=== PATIENT | male | born 1945 | race Caucasian/White ===

== ENCOUNTER → 2016-07-23 | Outpatient (CLI) | payer OTHER, MEDICARE ==
[~2016-07-23] MED LIST: BACT800T5 PO; BREO1INH INH; BUPR75TA5 PO; CIPR500T89 PO; METO25TA74 PO; OMEP40CA2 PO; PERC5TAB6 PO; PERCOCET PO; POLYOPD OU; PRAD75CA3 PO; RAMI25CA PO; SING10TA32 PO; VANC1INJ IV; ZOLO100T PO
== END ==
LOC: M LAB 18:35
PROVIDERS: ATTEND Urology
DX: N39.3 Stress incontinence (female) (male) (principal)

== ENCOUNTER 2016-07-24 05:52 | Day surgery (SDC) | payer OTHER, MEDICARE ==
[~2016-07-24] VITALS: Ht 182.9 cm; Wt 88.5 kg
[2016-07-24] VITALS (7 sets, daily range): BP systolic 97–151; BP diastolic 62–84
[~2016-07-24 05:52] MED LIST changes: -METO25TA74 PO; -RAMI25CA PO; -SING10TA32 PO
[2016-07-24] MEDS ORDERED: MIDAZOLAM INJ 2 MG/2 ML VIAL (J2250) As Ordered ONE (06:49)
[2016-07-24] MEDS ORDERED: LIDOCAINE 2% INJ 100 MG/5 ML SDV (FOR ANES.) As Ordered ONE (06:50)
[2016-07-24] MEDS ORDERED: fentaNYL 100 MCG/2 ML INJECTION (J3010) As Ordered ONE ×2 (06:50→08:33)
[2016-07-24] MEDS ORDERED: PROPOFOL 200 MG/20 ML VIAL As Ordered ONE (06:50)
[2016-07-24] MEDS ORDERED: VANCOMYCIN 1000 MG/20 ML VIAL (J3370) As Ordered ONE (06:56)
[2016-07-24] MEDS ORDERED: BACTRIM IV 160MG-800MG/10ML VIAL (S0039) XX SCH (07:00)
[2016-07-24] MEDS ORDERED: LR 1,000 ML IV ONE (07:00)
[2016-07-24] MEDS ORDERED: VANCOMYCIN HCL 1,000 MG, VIAL MATE ADAPTER 1 EACH in D5W 250 ML IV ONE (07:15)
[2016-07-24] MEDS ORDERED: GENTAMICIN 100 MG in APPROPRIATE DILUENT 1 EA IV ONE (07:15)
[2016-07-24] MEDS ORDERED: BACITRACIN OINT 30GM As Ordered ONE (07:17)
[2016-07-24] MEDS ORDERED: METO25TA74 PO (07:33)
[2016-07-24] MEDS ORDERED: RAMI25CA PO (07:33)
[2016-07-24] MEDS ORDERED: SING10TA32 PO (07:33)
[2016-07-24] MEDS ORDERED: ePHEDrine SULFATE 25 MG/5 ML(5MG/ML) SYRINGE As Ordered ONE (07:59)
[2016-07-24] MEDS ORDERED: PHENYLephrine HCL 500 MCG/5 ML (100MCG/ML) SYRINGE (J2370) As Ordered ONE (08:01)
[2016-07-24] MEDS ORDERED: BACTRIM IV 160MG-800MG/10ML VIAL (S0039) XX ONE (09:30)
[2016-07-24] MEDS ORDERED: ONDANSETRON 4MG/2ML VIAL (J2405) As Ordered ONE (10:56)
[2016-07-24] MEDS: KETOROLAC 30 MG/ML VIAL (J1885) IV SCH ×2 (11:00→19:39)
[2016-07-24] MEDS ORDERED: KETOROLAC 30 MG/ML VIAL (J1885) As Ordered ONE (11:03)
[2016-07-24] MEDS ORDERED: ONDANSETRON 4MG/2ML VIAL (J2405) IV PRN (11:15)
[2016-07-24] MEDS ORDERED: LR 1,000 ML IV SCH (11:15)
[2016-07-24] MEDS: fentaNYL 100 MCG/2 ML INJECTION (J3010) IV PRN ×2 (11:35→11:40)
[2016-07-24] MEDS: PERCOCET 5MG/325MG TAB PO PRN ×2 (11:52→17:59)
[2016-07-24] MEDS: BACTRIM 160MG/800MG DS TAB PO SCH ×2 (14:20→21:15)
[2016-07-24] MEDS ORDERED: ACETAMINOPHEN 500 MG TAB PO PRN (16:30)
[2016-07-24] MEDS ORDERED: LIDOCAINE 2% 5ML JELLY UROJET TOP ONE (17:00)
[2016-07-24] MEDS: METOPROLOL TART 25 MG TABLET PO SCH (21:17)
[2016-07-25 02:00] VITALS: BP 107/73
[2016-07-25] MEDS: KETOROLAC 30 MG/ML VIAL (J1885) IV SCH ×2 (02:24→11:00)
[2016-07-25 06:00] VITALS: BP 133/79
[2016-07-25] MEDS: PERCOCET 5MG/325MG TAB PO PRN ×2 (06:35→15:13)
[2016-07-25 09:00] VITALS: BP 133/79
[2016-07-25] MEDS: METOPROLOL TART 25 MG TABLET PO SCH (09:00)
[2016-07-25] MEDS ORDERED: PANTOPRAZOLE 40MG INJ (PROTONIX) (C9113) IV SCH (09:00)
[2016-07-25] MEDS: BACTRIM 160MG/800MG DS TAB PO SCH (09:00)
[2016-07-25 10:15] VITALS: O2SAT 94
[2016-07-25] MEDS ORDERED: PERCOCET PO (12:35)
[2016-07-25] MEDS ORDERED: BACT800T5 PO (12:35)
[2016-07-25 13:35] VITALS: BP 125/81
--- NOTE | 2016-07-25 16:40 | DSES ---
DATE OF ADMISSION: 07/24/2016 DATE OF DISCHARGE: 07/25/2016 ADMISSION DIAGNOSIS: Erectile dysfunction. DISCHARGE DIAGNOSIS: Erectile dysfunction. SURGERY PERFORMED: Placement of inflatable penile prosthesis Coloplast Titan 18 cm plus 1 cm rear tip. ADMITTING SURGEON: Hector Russell MD DISCHARGE SURGEON: Hector Russell MD SURGERY PERFORMED BY: Hector Russell MD COMPLICATIONS: None. HISTORY OF PRESENT ILLNESS: This is a 70-year-old male patient that has a history of having erectile dysfunction. He has tried TriMix without any success and also PDE5 inhibitors without any success. For this reason, he had placement of a penile prosthesis implant performed on 07/24/2016, without complications. HOSPITALIZATION COURSE: The patient had placement of a penile implant prosthesis, Titan 18 cm plus 1 cm rear tip. The patient was hospitalized after the procedure. He could not void after 6 hours. For this reason, we had to place a catheter, 16-Anguillan, to gravity, inflated the balloon to 10 mL. On postoperative day #1, he was tolerating a regular diet, ambulating very well, pain was controlled with oral pain medication, pain was 5/10. On the morning of postoperative day #1, we discontinued the Mayfield catheter and activated the sphincter. He has an artificial urinary sphincter that was placed 6 months ago and he actually managed this sphincter very well. We will observe him and he will be going home after voiding. He will go home with the following indications: Bactrim Double Strength one tablet by mouth twice a day for 3 weeks and he will have Percocet 5/325 mg one tablet by mouth every 6 hours as needed for pain. He cannot carry heavy weightlifting above 20 pounds. He can shower in 3 days. No sit bath, no pool, no pond. No motorcycle, no bicycle, and no horse riding. He understands very well these indications. He will followup in 2 weeks at [facility].
--- NOTE | 2016-07-26 05:58 | RO ---
DATE OF PROCEDURE: 07/24/2016 PREOPERATIVE DIAGNOSIS: Erectile dysfunction. POSTOPERATIVE DIAGNOSIS: Erectile dysfunction. PROCEDURE: Inflatable penile prosthesis implant placement 8 cm plus 1 cm rear tips bilaterally. SURGEON: Dr. Hector Russell CAREERS COUNSELLOR: None. ANESTHESIA: General. COMPLICATIONS: None. ESTIMATED BLOOD LOSS: N/A. HISTORY OF PRESENT ILLNESS: This is a 70-year-old male patient with a history of erectile dysfunction, has failed medical therapy with Viagra and Cialis, has failed injectable therapy with TriMix. For this reason, he has consented for inflatable penile prosthesis implant placement, Coloplast Titan. PROCEDURE DESCRIPTION: In a patient in supine position under general anesthesia, after prepping and draping the area of concern, which included the entire genitalia, we actually deactivated the artificial urinary sphincter and placed a #16-Welsh Mayfield catheter into the bladder to drain the bladder and inflated the balloon to 10 mL. We then proceeded to actually let the sphincter be deactivated. Meanwhile, we began the procedure. We then proceeded to do an incision in the mid raphe at the level at the base of the penis, into the penoscrotal area, for about 5 cm in length. Through this skin incision, we incised the corpora cavernotomy on the right side and on the left side for about 2 cm in length. We dilated the corpora cavernotomies on both sides and the corpora cavernosa and then measured with a Libby the corpora cavernosa for a total of 19 cm on both sides. For this reason, we selected a penile implant 18 cm in length with 1 cm rear tips. At that moment in time, we irrigated with Bactrim solution and we dissected on the left side of the external inguinal canal, inside the external inguinal canal, and into the inguinal canal and made a puncture in the posterior wall in the floor of the inguinal canal and entered the Retzius space. Through this space dissection, we actually placed a [place] reservoir and inflated the reservoir for 70 mL. We rubber-shod the tubing of the reservoir. At that moment in time, with the help of the Libby, we passed strings attached to the inflatable penile prostheses and passed it inside the corpora on each side, extruding the needles through the glans. We then placed two tags, took the needles out, and pulled penile implant distally. Proximally, we placed the penile implant with 1 cm rear tip on each side and placed it inside for corpora cavernosa bilaterally. We then proceeded to close the corpora cavernotomies with #2-0 Vicryl in separate stitches times three on both sides until watertight. We then proceeded to connect the tubings of the penile implant with the tubing of the reservoir and inflated the penile implant to about 20 mL to actually have a semi-rigid erection at that moment in time. We then proceeded to actually place the pump inside the scrotal sac by making a scrotal sac pouch and then closed the scrotal sac in two layers with #3-0 chromic. Closed the skin with #3-0 Monocryl in a running fashion. We placed bacitracin cream, 4 x 4's, and a mummy wrap with a Kerlix roll around the penis and the testicles. We then proceeded to actually deflate the balloon of the Mayfield catheter, took the Mayfield catheter out, and activated the artificial urinary sphincter. PLAN: The patient will pass to recovery, then to the floor. Once he is taking oral pain medication, tolerating regular diet, and ambulating very well, he will be discharged home. There were no complications during surgery. He will not activate the penile implant for 8 weeks. He has to take Bactrim one tablet by mouth twice a day for 4 weeks.
== END 2016-07-25 15:15 | disposition home or self-care (01) ==
LOC: M SDC 05:52 → M MS5PR 12:30 → M SDC 07-25 15:15
PROVIDERS: ATTEND Urology
DX: N52.9 Male erectile dysfunction, unspecified (principal); M19.90 Unspecified osteoarthritis, unspecified site; I25.10 Atherosclerotic heart disease of native coronary artery without angina pectoris; E78.5 Hyperlipidemia, unspecified; R07.9 Chest pain, unspecified; I71.2 Thoracic aortic aneurysm, without rupture; I10 Essential (primary) hypertension; R94.31 Abnormal electrocardiogram [ECG] [EKG]; F41.8 Other specified anxiety disorders; I48.92 Unspecified atrial flutter; K21.9 Gastro-esophageal reflux disease without esophagitis; M54.2 Cervicalgia; M54.5 Low back pain; G89.29 Other chronic pain; F32.9 Major depressive disorder, single episode, unspecified; F43.10 Post-traumatic stress disorder, unspecified; R05 Cough; R06.02 Shortness of breath; J30.9 Allergic rhinitis, unspecified; R06.83 Snoring; G47.9 Sleep disorder, unspecified; C61 Malignant neoplasm of prostate; R32 Unspecified urinary incontinence; Z88.6 Allergy status to analgesic agent; Z79.899 Other long term (current) drug therapy; Z87.891 Personal history of nicotine dependence
CPT/HCPCS: 36415; 54401; 86850; 86900; 86901; 96374; 96375; C1813; C9113; J1580; J1885; J2250; J2370; J2405; J3010; J3370

== ENCOUNTER → 2016-08-02 | Outpatient (CLI) | payer OTHER ==
[~2016-08-02] MED LIST changes: +METO25TA74 PO; +RAMI25CA PO; +SING10TA32 PO
== END ==
LOC: M SMT 10:35
PROVIDERS: ATTEND Urology
DX: N52.9 Male erectile dysfunction, unspecified (principal)

== ENCOUNTER → 2017-02-03 | Outpatient (CLI) | payer OTHER ==
[~2017-02-03] MED LIST changes: +CIPR-249 PO; -CIPR500T89 PO; +METO1TAB32 PO; -METO25TA74 PO; +PERC5TAB12 PO; -PERC5TAB6 PO
== END ==
LOC: M SMT 12:58
PROVIDERS: ATTEND Urology
DX: C61 Malignant neoplasm of prostate (principal)

== ENCOUNTER → 2017-08-04 | Outpatient (CLI) | payer OTHER ==
[2017-08-04 19:48] LABS: PROSTATIC SPECIFIC AG MONITOR < 0.01 NG/ML (< 4.0)
== END ==
LOC: M SMT 13:43
DX: C61 Malignant neoplasm of prostate (principal)
CPT/HCPCS: 84153

== ENCOUNTER → 2018-02-06 | Outpatient (CLI) | payer OTHER ==
[2018-02-06 18:12] LABS: PROSTATIC SPECIFIC AG MONITOR < 0.0 NG/ML (< 4.0)
== END ==
LOC: M SMT 13:16
DX: C61 Malignant neoplasm of prostate (principal)
CPT/HCPCS: 84153

== ENCOUNTER → 2019-08-09 | Outpatient (CLI) | payer OTHER ==
[~2019-08-09] MED LIST changes: +BUPR-335 PO; +ELIQ5TAB PO; +METO25TA4 PO; +MULTCAP PO; -OMEP40CA2 PO; +OMEP40CA97 PO; -PRAD75CA3 PO; +PRAD75CA5 PO; +RAMI1CAP22 PO; -RAMI25CA PO; +VERA24TASA PO
== END ==
LOC: M LABSMTC 12:46
PROVIDERS: ATTEND Anesthesiology
DX: Z01.818 Encounter for other preprocedural examination (principal); Z11.59 Encounter for screening for other viral diseases
CPT/HCPCS: C9803; U0003

== ENCOUNTER 2019-08-12 08:24 | Day surgery (SDC) | payer OTHER ==
[~2019-08-12] VITALS: Ht 182.9 cm; Wt 88.9 kg
[2019-08-12] MEDS: NS 1,000 ML IV ONE (08:52)
[2019-08-12] MEDS ORDERED: propofoL 200 MG/20 ML VIAL As Ordered ONE ×2 (09:50→09:51)
[2019-08-12] MEDS ORDERED: LIDOCAINE 2% 100MG/5ML SDV (FOR ANES.) As Ordered ONE (09:51)
[2019-08-12] MEDS ORDERED: ESMOLOL INJ 100MG/10ML VIAL As Ordered ONE (10:00)
--- NOTE | 2019-08-12 10:04 | ROOR ---
Patient Name: Dave Colunga Procedure Date: 08/12/2019 9:31 AM Date of : 1945 Age: 73 Room: [facility] Gender: Male Note Status: Finalized Procedure: Colonoscopy Indications: High risk colon cancer surveillance: Personal history of colonic polyps Providers: Julian Cobian Jr, MD Referring MD: MELANY RENE Requesting Provider: Medicines: Propofol per Anesthesia Complications: No immediate complications. Procedure: Pre-Anesthesia Assessment: - Prior to the procedure, a History and Physical was performed, and patient medications and allergies were reviewed. The patient is competent. The risks and benefits of the procedure and the sedation options and risks were discussed with the patient. All questions were answered and informed consent was obtained. Patient identification and proposed procedure were verified by the physician and the nurse in the pre-procedure area and in the procedure room. Mental Status Examination: alert and oriented. Airway Examination: normal oropharyngeal airway and neck mobility. Respiratory Examination: clear to auscultation. CV Examination: normal. ASA Grade Assessment: II - A patient with mild systemic disease. After reviewing the risks and benefits, the patient was deemed in satisfactory condition to undergo the procedure. The anesthesia plan was to use moderate sedation / analgesia (conscious sedation). Immediately prior to administration of medications, the patient was re-assessed for adequacy to receive sedatives. The heart rate, respiratory rate, oxygen saturations, blood pressure, adequacy of pulmonary ventilation, and response to care were monitored throughout the procedure. The physical status of the patient was re-assessed after the procedure. The Colonoscope was introduced through the anus and advanced to the cecum, identified by appendiceal orifice and ileocecal valve. The colonoscopy was performed without difficulty. The patient tolerated the procedure well. The quality of the bowel preparation was adequate. Findings: The rectum, descending colon, transverse colon, cecum, appendiceal orifice and ileocecal valve appeared normal. Three polyps were found in the recto-sigmoid colon and ascending colon. The polyps were small in size. These polyps were removed with a hot snare. Resection was complete, but the polyp tissue was only partially retrieved. Multiple small and large-mouthed diverticula were found in the sigmoid colon. Non-bleeding external and internal hemorrhoids were found during endoscopy. The hemorrhoids were Grade III (internal hemorrhoids that prolapse but require manual reduction). Impression: - The rectum, descending colon, transverse colon, cecum, appendiceal orifice and ileocecal valve are normal. - Three small polyps at the recto-sigmoid colon and in the ascending colon, removed with a hot snare. Complete resection. Partial retrieval. - Diverticulosis in the sigmoid colon. - Non-bleeding external and internal hemorrhoids. Recommendation: - Repeat colonoscopy in 3 - 5 years for surveillance based on pathology results. Julian Cobian MD Julian Cobian Jr, MD 08/12/2019 10:04:23 AM Electronically signed by Julian Cobian Jr, MD Number of Addenda: 0 Note Initiated On: 08/12/2019 9:31 AM Estimated Blood Loss: Estimated blood loss: none.
[2019-08-12 10:40] VITALS: BP 114/83
== END 2019-08-12 10:45 | disposition home or self-care (01) ==
LOC: M OPP 08:24
PROVIDERS: ATTEND Surgery
DX: Z12.11 Encounter for screening for malignant neoplasm of colon (principal); Z86.010 Personal history of colon polyps; K64.2 Third degree hemorrhoids; D12.6 Benign neoplasm of colon, unspecified; K57.30 Diverticulosis of large intestine without perforation or abscess without bleeding; Z79.899 Other long term (current) drug therapy; Z88.8 Allergy status to other drugs, medicaments and biological substances; Z87.891 Personal history of nicotine dependence

== ENCOUNTER → 2020-02-04 | Outpatient (CLI) | payer SELFPAY | LOC: M LABSMTC 13:35 | PROVIDERS: ATTEND Pediatrics | DX: Z20.828 Contact with and (suspected) exposure to other viral communicable diseases (principal) ==

== ENCOUNTER 2020-11-25 19:24 | Emergency (ER) | payer OTHER, MEDICARE ==
[~2020-11-25] VITALS: Ht 182.9 cm; Wt 88.5 kg
[~2020-11-25 19:24] MED LIST changes: +OMEP40CA4 PO; -OMEP40CA97 PO
[2020-11-25] MEDS ORDERED: ROSU40TA4 PO (19:42)
[2020-11-25] MEDS ORDERED: METO1TAB7 PO (19:42)
[2020-11-25] MEDS ORDERED: LIDOCAINE W/EPINEPHRINE 1% 20ML VIAL SC ONE (20:15)
[2020-11-25] MEDS ORDERED: BOOSTRIX/ADACEL VACCINE (DIPHTH/PERTUSS/ACELL/TETANUS) 0.5ML SYR IM ONE (20:15)
--- NOTE | 2020-11-25 20:19 | REPVR ---
PROCEDURE INFORMATION: Exam: CT Head Without Contrast Exam date and time: 11/25/2020 7:50 PM Age: 75 years old Clinical indication: Injury or trauma; Fall; Blunt trauma (contusions or hematomas); Additional info: Eloquis/fall on pavement TECHNIQUE: Imaging protocol: Computed tomography of the head without contrast. Radiation optimization: All CT scans at this facility use at least one of these dose optimization techniques: automated exposure control; mA and/or kV adjustment per patient size (includes targeted exams where dose is matched to clinical indication); or iterative reconstruction. COMPARISON: No relevant prior studies available. FINDINGS: Brain: Decreased attenuation of the supratentorial white matter is likely secondary to chronic microvascular ischemia. No acute intracranial hemorrhage. 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 Cerebral ventricles: Ventricular and subarachnoid spaces are age appropriate. Paranasal sinuses: Visualized sinuses are unremarkable. No fluid levels. Mastoid air cells: Visualized mastoid air cells are well aerated. Vasculature: Intracranial vascular calcification. Bones/joints: Unremarkable. No acute fracture. Soft tissues: Unremarkable. IMPRESSION: No acute intracranial abnormality. Electronically signed by: Jose E Cuevas On 11/25/2020 20:19:17 PM
--- NOTE | 2020-11-25 20:22 | REPVR ---
PROCEDURE INFORMATION: Exam: CT Cervical Spine Without Contrast Exam date and time: 11/25/2020 7:50 PM Age: 75 years old Clinical indication: Injury or trauma; Fall; Blunt trauma; Additional info: Eloquis/fall on pavement TECHNIQUE: Imaging protocol: Computed tomography images of the cervical spine without contrast. Radiation optimization: All CT scans at this facility use at least one of these dose optimization techniques: automated exposure control; mA and/or kV adjustment per patient size (includes targeted exams where dose is matched to clinical indication); or iterative reconstruction. COMPARISON: No relevant prior studies available. FINDINGS: Bones/joints: Nonspecific straightening. Trace anterolisthesis of C3 on C4 and C7 on T1. Vertebral body heights are preserved. [id number] degenerative change about the dens. Moderate prevertebral osteophytosis. There are bilateral facet joint degenerative changes more prominent on the left. No acute cervical spine fracture. Discs/Spinal canal/Neural foramina: No definite significant central canal stenosis within limitations of technique. Multilevel cervical foraminal stenoses. Lungs: Scarring at the lung apices. Pleural spaces: No visible pneumothorax. Vasculature: Vascular calcification. Soft tissues: Unremarkable. IMPRESSION: No acute cervical spine fracture. Electronically signed by: Jose E Cuevas On 11/25/2020 20:21:56 PM
--- NOTE | 2020-11-25 21:23 | REPVR ---
PROCEDURE INFORMATION: Exam: CT Maxillofacial Without Contrast Exam date and time: 11/25/2020 9:03 PM Age: 75 years old Clinical indication: Injury or trauma; Fall; Blunt trauma (contusions or hematomas); Nose; Additional info: Fall, R/O nasal fracture TECHNIQUE: Imaging protocol: Computed tomography images of the face without contrast. Radiation optimization: All CT scans at this facility use at least one of these dose optimization techniques: automated exposure control; mA and/or kV adjustment per patient size (includes targeted exams where dose is matched to clinical indication); or iterative reconstruction. COMPARISON: CT Head without contrast 11/25/2020 7:46 PM FINDINGS: Limitations: Artifact arising from metallic dental hardware. Orbital cavity: No orbital hemorrhage. Bones/joints: There are degenerative changes involving the cervical spine. No acute facial bone fracture. Chronic appearing left nasal bone fracture. Paranasal sinuses: Minimal paranasal sinus disease. Soft tissues: Unremarkable. IMPRESSION: Mildly depressed left nasal bone fracture is favored to be chronic. Electronically signed by: Jose E Cuevas On 11/25/2020 21:23:31 PM
[2020-11-25 22:32] VITALS: BP 120/70
--- NOTE | 2020-11-26 15:56 | REP ---
INDICATION: fall, laceration. COMPARISON: None. TECHNIQUE: Four views the left hand were performed. FINDINGS: There is no evidence of fracture or dislocation. There is no significant arthropathy. There is a soft tissue calcification on the palm are aspect of the distal radius, may be an old avulsion fracture. IMPRESSION: 1. No evidence of fracture or significant arthropathy. 2. Probable old avulsion fracture of the distal radius. <Electronically signed by Alexy Nix > 11/26/20 [id number]
== END 2020-11-25 22:34 | disposition home or self-care (01) ==
LOC: M ED 19:24
DX: S61.422A Laceration with foreign body of left hand, initial encounter (principal); S00.81XA Abrasion of other part of head, initial encounter; X58.XXXA Exposure to other specified factors, initial encounter; Y92.099 Unspecified place in other non-institutional residence as the place of occurrence of the external cause; Y93.9 Activity, unspecified; Y99.9 Unspecified external cause status; I48.91 Unspecified atrial fibrillation; I10 Essential (primary) hypertension; K21.9 Gastro-esophageal reflux disease without esophagitis; F43.10 Post-traumatic stress disorder, unspecified; Z85.46 Personal history of malignant neoplasm of prostate; Z79.01 Long term (current) use of anticoagulants; Z79.899 Other long term (current) drug therapy; Z88.8 Allergy status to other drugs, medicaments and biological substances

== ENCOUNTER → 2023-08-25 | Outpatient (CLI) | payer OTHER, MEDICARE ==
[~2023-08-25] MED LIST changes: +ALLE180T33 PO; +METO1TAB7 PO; +MONT-5 PO; +PRES1CAP PO; -RAMI1CAP22 PO; +RAMI2.5C42 PO; +ROSU40TA63 PO; -SING10TA32 PO; +VERA240T65 PO; -VERA24TASA PO
[2023-08-25 16:30] LABS: APPEARANCE, URINE CLEAR (CLEAR); BACTERIA, URINE AUTO NEGATIVE (NEGATIVE); BILIRUBIN, URINE AUTO NEGATIVE (NEGATIVE); BLOOD, URINE BLOOD NEGATIVE (NEGATIVE); COLOR, URINE YELLOW (YELLOW); GLUCOSE, URINE (UA) AUTO NEGATIVE (NEGATIVE); KETONE, URINE AUTO NEGATIVE (NEGATIVE); LEUKOCYTE ESTERASE, URINE AUTO NEGATIVE (NEGATIVE); NITRITE, URINE AUTO NEGATIVE (NEGATIVE); PROTEIN, URINE AUTO NEGATIVE (NEGATIVE); RBC, URINE AUTO 0 /HPF (0-3); SPECIFIC GRAVITY URINE AUTO 1.016 (1.002-1.035); SQUAMOUS EPITHELIAL CELL UR AU 1 /HPF (0-6); WBC, URINE AUTO 0 /HPF (0-3)
[2023-08-25 16:52] LABS: PROSTATIC SPECIFIC AG MONITOR 0.04 NG/ML (< 4.00)
[2023-08-25 16:54] LABS: ALBUMIN 4.1 G/DL (3.2-5.2); ALKALINE PHOSPHATASE 76 U/L (46-116); ALT/SGPT 17 U/L (7.0-40); AST/SGOT 19 U/L (<34); BILIRUBIN,TOTAL 1.3 MG/DL (0.3-1.2); BLOOD UREA NITROGEN 13 MG/DL (9-23); CALCIUM LEVEL 9.5 MG/DL (8.3-10.6); CARBON DIOXIDE LEVEL 28 MMOL/L (20-31); CHLORIDE LEVEL 108 MMOL/L (98-107); CHOLESTEROL LEVEL 173 MG/DL (<200); CHOLESTEROL RISK RATIO 2.32 (<5); CREATININE FOR GFR 1.12 MG/DL (0.70-1.30); GLOMERULAR FILTRATION RATE > 60.0 (>42); GLUCOSE, FASTING 88 MG/DL (74-106); HDL CHOLESTEROL 74.5 MG/DL (> 40); HDL CHOLESTEROL 74.5 MG/DL (>40); LDL CHOLESTEROL 84.1 MG/DL (<100); NON-HDL-C 98.5 MG/DL; POTASSIUM SERUM 4.2 MMOL/L (3.5-5.1); SODIUM LEVEL 140 MMOL/L (136-145); TOTAL PROTEIN 7.1 G/DL (5.7-8.2); TRIGLYCERIDES LEVEL 72 MG/DL (<150)
[2023-08-25 16:56] LABS: THYROID STIMULATING HORMONE 2.622 uIU/ML (0.55-4.78)
== END ==
LOC: M WUC 14:13
PROVIDERS: ATTEND Physician Assistant
DX: I48.92 Unspecified atrial flutter (principal); E78.5 Hyperlipidemia, unspecified; C61 Malignant neoplasm of prostate; R35.1 Nocturia

== ENCOUNTER → 2023-10-08 | Outpatient (CLI) | payer OTHER, MEDICARE | LOC: M PLAIMG 11:57 | PROVIDERS: ATTEND Physician Assistant | DX: M17.0 Bilateral primary osteoarthritis of knee (principal) ==

== ENCOUNTER 2024-02-23 16:30 | Emergency (ER) | payer OTHER, MEDICARE ==
[~2024-02-23] VITALS: Ht 182.9 cm; Wt 80.9 kg
[~2024-02-23 16:30] MED LIST changes: -ROSU40TA63 PO; +ROSU40TA81 PO
[2024-02-23] MEDS ORDERED: XARE20TA PO (16:53)
[2024-02-23] MEDS ORDERED: VITA200012 PO (17:10)
[2024-02-23] MEDS: OXYMETAZOLINE 0.05% NASAL SPRAY (AFRIN) ONE (17:26)
[2024-02-23 17:39] LABS: HEMATOCRIT 40.9 % (42.0-52.0); HEMOGLOBIN 13.8 g/dl (13.5-17.5); MEAN CORPUSCULAR HGB CONC 33.7 g/dl (32.0-36.5); MEAN CORPUSCULAR VOLUME 97.8 fl (80.0-96.0); PLATELET COUNT, AUTOMATED 162 10^3/uL (150-450); RED BLOOD COUNT 4.18 10^6/uL (4.30-6.10); WHITE BLOOD COUNT 5.7 10^3/uL (4.0-10.0)
[2024-02-23 17:52] LABS: INR 1.84; PARTIAL THROMBOPLASTIN TIME 38.5 SECONDS (24.8-34.2); PROTHROMBIN TIME 21.4 SECONDS (12.5-14.5)
[2024-02-23 18:20] VITALS: BP 133/95; TEMP 98.7; O2SAT 96
== END 2024-02-23 18:26 | disposition home or self-care (01) ==
LOC: M ED 16:30
DX: R04.0 Epistaxis (principal); I10 Essential (primary) hypertension; I48.91 Unspecified atrial fibrillation; C61 Malignant neoplasm of prostate; K21.9 Gastro-esophageal reflux disease without esophagitis; Z88.6 Allergy status to analgesic agent

== ENCOUNTER 2024-04-12 08:22 | Day surgery (SDC) | payer OTHER, MEDICARE ==
[~2024-04-12] VITALS: Ht 185.4 cm; Wt 79.8 kg
[~2024-04-12 08:22] MED LIST changes: +LR 1,000 ML IV SCH; +METO1TAB87 PO; +MIDAZOLAM INJ 2MG/2ML VIAL As Ordered ONE; +VITA200012 PO; +WELL100T2 PO; +XARE20TA PO; +fentaNYL 100 MCG/2 ML INJECTION As Ordered ONE
[2024-04-12] MEDS: TETRACAINE 0.5% OPHTH SOLN 4ML OS SCH (09:18)
[2024-04-12] MEDS: CYCLOPENTOLATE 1% OPHTH SOLN 2ML BTL OS SCH (09:18)
[2024-04-12] MEDS: FLURBIPROFEN 0.03% OPHTH SOLN 2.5 ML OS SCH (09:18)
[2024-04-12] MEDS: PHENYLEPHRINE 2.5% OPHTH SOL 2ML OS SCH (09:18)
[2024-04-12] MEDS: LIDOCAINE 1% SDV 5ML VIAL As Ordered ONE (10:40)
[2024-04-12] MEDS: CEFUROXIME 1MG/0.1ML INTRACAMERAL INJ As Ordered ONE (10:40)
[2024-04-12 11:01] VITALS: BP 149/85; TEMP 97.2; O2SAT 99
== END 2024-04-12 11:24 | disposition home or self-care (01) ==
LOC: M SDC 08:22
PROVIDERS: ATTEND Ophthalmology
DX: H25.12 Age-related nuclear cataract, left eye (principal); I48.20 Chronic atrial fibrillation, unspecified; I10 Essential (primary) hypertension; E78.00 Pure hypercholesterolemia, unspecified; Z79.01 Long term (current) use of anticoagulants; Z79.899 Other long term (current) drug therapy; R32 Unspecified urinary incontinence; Z85.46 Personal history of malignant neoplasm of prostate; F32.A Depression, unspecified; F41.9 Anxiety disorder, unspecified; F43.12 Post-traumatic stress disorder, chronic; Z88.6 Allergy status to analgesic agent; Z87.891 Personal history of nicotine dependence
CPT/HCPCS: 66984; J0697; J2250; J3010; V2632

== ENCOUNTER 2024-05-17 08:58 | Day surgery (SDC) | payer OTHER, MEDICARE ==
[~2024-05-17] VITALS: Ht 182.9 cm; Wt 78.6 kg
[~2024-05-17 08:58] MED LIST changes: -MIDAZOLAM INJ 2MG/2ML VIAL As Ordered ONE; -fentaNYL 100 MCG/2 ML INJECTION As Ordered ONE
[2024-05-17] MEDS: CYCLOPENTOLATE 1% OPHTH SOLN 2ML BTL OD SCH (09:50)
[2024-05-17] MEDS: PHENYLEPHRINE 2.5% OPHTH SOL 2ML OD SCH (09:50)
[2024-05-17] MEDS: FLURBIPROFEN 0.03% OPHTH SOLN 2.5 ML OD SCH (09:51)
[2024-05-17] MEDS: TETRACAINE 0.5% OPHTH SOLN 4ML OD SCH (09:51)
[2024-05-17] MEDS ORDERED: MIDAZOLAM INJ 2MG/2ML VIAL As Ordered ONE (11:49)
[2024-05-17] MEDS ORDERED: fentaNYL 100 MCG/2 ML INJECTION As Ordered ONE (11:49)
[2024-05-17] MEDS: LIDOCAINE 1% SDV 5ML VIAL As Ordered ONE (11:50)
[2024-05-17] MEDS: CEFUROXIME 1MG/0.1ML INTRACAMERAL INJ As Ordered ONE (11:50)
[2024-05-17 12:08] VITALS: BP 132/89; TEMP 96.9; O2SAT 98
== END 2024-05-17 12:25 | disposition home or self-care (01) ==
LOC: M SDC 08:58
PROVIDERS: ATTEND Ophthalmology
DX: H25.11 Age-related nuclear cataract, right eye (principal); I48.91 Unspecified atrial fibrillation; I10 Essential (primary) hypertension; E78.5 Hyperlipidemia, unspecified; Z79.01 Long term (current) use of anticoagulants; Z79.899 Other long term (current) drug therapy; F41.9 Anxiety disorder, unspecified; F32.A Depression, unspecified; F43.10 Post-traumatic stress disorder, unspecified; Z85.46 Personal history of malignant neoplasm of prostate; Z88.8 Allergy status to other drugs, medicaments and biological substances
CPT/HCPCS: 66984; J0697; J2250; J3010; V2632

== ENCOUNTER → 2024-07-21 | Outpatient (CLI) | payer MEDICARE, OTHER ==
[~2024-07-21] MED LIST changes: -BUPR-335 PO; +BUPR-500 PO; -LR 1,000 ML IV SCH
== END ==
LOC: M CARPUL 14:07
PROVIDERS: ATTEND Registered Nurse
DX: I77.810 Thoracic aortic ectasia (principal); I08.9 Rheumatic multiple valve disease, unspecified

== ENCOUNTER → 2024-11-13 | Outpatient (CLI) | payer OTHER | LOC: M EKG 12:52 | PROVIDERS: ATTEND Registered Nurse | DX: I48.21 Permanent atrial fibrillation (principal) ==

== ENCOUNTER → 2024-12-22 | Outpatient (CLI) | payer OTHER ==
[2024-12-22 18:36] LABS: BASO # 0.0 10^3/uL (0.0-0.2); BASO % 0.6 % (0.0-1.0); EOS # 0.2 10^3/uL (0.0-0.5); EOS % 2.8 % (0.0-3.0); LYMPH # 0.9 10^3/uL (1.5-5.0); LYMPH % 14.1 % (24.0-44.0); MONO # 0.5 10^3/uL (0.0-0.8); MONO % 7.9 % (2.0-8.0); NEUTROPHILS # 4.7 10^3/uL (1.5-8.5); NEUTROPHILS % 74.1 % (36.0-66.0); PLATELET COUNT, AUTOMATED 190 10^3/uL (150-450)
[2024-12-22 19:06] LABS: VITAMIN B12 LEVEL 410.0 PG/ML (211-911)
== END ==
LOC: M WUC 13:31
PROVIDERS: ATTEND Physician Assistant
DX: M25.552 Pain in left hip (principal); S23.41XA Sprain of ribs, initial encounter; E03.9 Hypothyroidism, unspecified; D51.8 Other vitamin B12 deficiency anemias; X58.XXXA Exposure to other specified factors, initial encounter; Y92.9 Unspecified place or not applicable; Y93.9 Activity, unspecified; Y99.9 Unspecified external cause status

== ENCOUNTER → 2025-01-24 | Outpatient (CLI) | payer MEDICARE, OTHER ==
[~2025-01-24] MED LIST changes: +BUPR-363 PO; -BUPR75TA5 PO
== END ==
LOC: M RAD 16:31
PROVIDERS: ATTEND Physician Assistant Surgical
DX: M16.12 Unilateral primary osteoarthritis, left hip (principal); S70.02XA Contusion of left hip, initial encounter; X58.XXXA Exposure to other specified factors, initial encounter; Y92.9 Unspecified place or not applicable; Y93.9 Activity, unspecified; Y99.9 Unspecified external cause status; K57.90 Diverticulosis of intestine, part unspecified, without perforation or abscess without bleeding